=== PATIENT | female | born 1950 | race Caucasian/White ===

== ENCOUNTER → 2017-01-06 | Outpatient (CLI) | payer MEDICARE, OTHER | END | disposition home or self-care (01) | LOC: RAD.S 09:42 | DX: M79.641 Pain in right hand (principal); M79.642 Pain in left hand ==

== ENCOUNTER → 2017-02-18 | Outpatient (CLI) | payer MEDICARE, OTHER | END | disposition home or self-care (01) | DX: R05 Cough (principal); R07.89 Other chest pain; I25.10 Atherosclerotic heart disease of native coronary artery without angina pectoris; R91.1 Solitary pulmonary nodule ==

== ENCOUNTER 2017-02-22 08:37 | Emergency (ER) | payer MEDICARE, OTHER ==
--- NOTE | 2017-03-05 09:41 | ER ---
ADMIT: 02/22/2017 RM/LOC: ER [facility] MR#: [id number] [facility] [address] [place], [place] [id number] DAVID HUANG [address] [place] [address] Emergency Room Report SEX: F AGE: 67 : 1950 DATE: 02/22/2017 ADDENDUM: CHIEF COMPLAINT: Redness at the IV site. HISTORY OF PRESENT ILLNESS: This 67-year-old had carpal tunnel surgery on Friday. She was on Xarelto. She had held it just prior to surgery and restarted that afterwards. The IV site is ecchymotic and a little bit of it is more red than the rest of it. She was worried that this could be the beginning of cellulitis. It is not hot. It is more of a maroon color, not bright red. I told her at this time I do not think it is cellulitis at all. I think it is just from restarting her Xarelto and bruising more. She also complained of pain kind of going up that left arm. The carpal tunnel surgery was on the right. She does not usually use her left arm and has been having to use it more, I told her it could just be little bit of muscle soreness. She denies any chest pain. Denies any shortness of breath. Denies any jaw pain. Denies really any shoulder pain. It is more of forearm pain. There is no swelling, no signs of DVT, and she is on Xarelto. I told her to continue the warm compresses to the hand, use her arm as tolerated, and follow up if worsen. She does have tramadol for pain. Told her to continue that or Tylenol, and again follow up or return to the ER if she worsens or develops any kind of shortness of breath or chest pain. CLINICAL IMPRESSION: Ecchymosis to the left hand secondary to IV. ARMAND Cerda / Jason Patton MD / josephine JOB #: [id number] CC: Zane Lyons MD, Attending Physician Alok Hoskins DO, Family Physician
== END 2017-02-22 08:48 | disposition home or self-care (01) ==
LOC: ER 08:37
DX: S60.222A Contusion of left hand, initial encounter (principal); I48.91 Unspecified atrial fibrillation; E03.9 Hypothyroidism, unspecified; Z88.2 Allergy status to sulfonamides; X58.XXXA Exposure to other specified factors, initial encounter

== ENCOUNTER → 2017-04-18 | Outpatient (CLI) | payer MEDICARE, OTHER | END | disposition home or self-care (01) | LOC: RAD.S 09:13 | DX: R49.0 Dysphonia (principal); M54.2 Cervicalgia ==